=== PATIENT | female | born 1930 | race Caucasian/White ===

== ENCOUNTER → 2017-01-29 | Outpatient (CLI) | payer MEDICARE, BC ==
[~2017-01-29] MED LIST: ACET-2321 PO; AMLO2.5T33 PO; ASPI-917 PO; CALC-587 PO; CARB1TAB PO; CHOL200047 PO; DOCU-175 PO; FAMO1TAB17 PO; IRBE300T19 PO; MAG-37 PO; MAGN400O4 PO; MAGN800O PO; METO-277 PO; METO10TA3 PO; METO10TA65 PO; METO25TA27 PO; PANT40TA27 PO; POLY17PO18 PO; PRAM0.5T12 PO; PRAV20TA48 PO; SENN-156 PO; TEMA15CA PO; TRAM50TA4 PO; TRAM50TA53 PO; [UNRECOGNIZED DRUG - CODE] PO; [UNRECOGNIZED DRUG - CODE] PO; [UNRECOGNIZED DRUG - CODE] PO
--- NOTE | 2017-01-29 09:03 | DI ---
Indication: ITS.REASON: N18.4 CHRONIC KIDNEY DISEASE, STAGE 4 US RENAL: Comparison: None Technique: Real-time and color flow imaging provided Findings: Right kidney: Measures 10.3 x 4.1 x 3.6 cm Left kidney measures 10.3 x 4.4 x 3.6 cm. Patient showed minimal cortical thinning but no masses, cysts or abnormal calcifications. Kidneys did not seem particularly hyperechoic and echogenic texture. Both hypoechoic compared to the adjacent liver. Impression: Questionable minimal cortical thinning without additional acute findings. .
== END ==
LOC: IMA 06:52
PROVIDERS: ATTEND Internal Medicine Nephrology
DX: N18.4 Chronic kidney disease, stage 4 (severe) (principal)

== ENCOUNTER 2017-02-03 06:39 | Inpatient (IN) | payer MEDICARE, BC ==
--- NOTE | 2016-12-15 17:00 | NUR ---
PMH, allergies, meds reviewed and documented. Patient is accompanied by her son who is an active participant in providing information obtained. Preop and DOS instructions given including handouts of medications to stop before surgery, shower instructions and CHG soap, letter from Dr Parsons, ortho consent, Surgical Services pamphlet, and my contact information. We did discuss problems they had encountered with communications between facilities with her previous joint replacement in 2014. I encouraged them to visit with Abdi Montiel RN with Case Management and provided her phone number to them.
--- NOTE | 2016-12-16 08:37 | NUR ---
IMPLANTABLE DEVICE [employer]-Implanted Cardiac Rhythm Device Model [id number] SERIAL [id number] DATE OF [id number] PHONE FOR MEDICAL PERSONNEL: - [phone]
--- NOTE | 2017-01-06 16:06 | NUR ---
JOINT REPLACEMENT PREOP CLASS PATIENT ATTENDED JOINT REPLACEMENT PREOP CLASS. CASE MANAGEMENT CONTACT INFORMATION PROVIDED. EDUCATION WAS PROVIDED REGARDING WHAT TO EXPECT BEFORE, DURING AND AFTER SURGERY. INCLUDING: OVERVIEW OF ANATOMY AND PHYSIOLOGY HOSPITAL TREATMENT SCHEDULE THERAPY DEMONSTRATION CASE MANAGEMENT RESPONSIBILITIES DISCHARGE PLANNING EQUIPMENT NEEDS JOINT REPLACEMENT WORKBOOK ANTI-COAGULATION SURGERY STRONG NUTRITIONAL PROTOCOL DISCHARGE INSTRUCTIONS [facility] [place]IENT PORTAL, WITH INSTRUCTIONS CJR AND PREOP SURVERY PREOP BATHING- CHG GIVEN ALL PATIENT'S QUESTIONS ANSWERED TO THEIR SATISFACTION. PATIENTS AND COACHES ENCOURAGED TO CALL WITH ANY ADDITIONAL QUESTIONS OR CONCERNS. CM FOLLOWING FOR TRANSITIONAL CARE PLANNING NEEDS DURING HOSPITALIZATION.
--- NOTE | 2017-02-02 19:35 | NUR ---
TIME CHANGE FOR ARRIVAL NOTIFICATION TO NUMBER ON FILE. SON ANSWERED PHONE. RN VERBALIZED TIME CHANGE TO ARRIVE AT [facility] AT 0645 02/03/17. SON OF PT VERBALIZED UNDERSTANDING AT THIS TIME.
[~2017-02-03] VITALS: Ht 162.6 cm; Wt 99.3 kg
[2017-02-03] VITALS (33 sets, daily range): BP systolic 116–217; BP diastolic 54–87; PULSE 75–92; RESP 13–20; TEMP 95.4–99.5; O2SAT 87–97; Ht 162.6 cm; Wt 99.3 kg
[~2017-02-03 06:39] MED LIST changes: -ACET-2321 PO; -ASPI-917 PO; +FAMOTIDINE 20mg IVPB 50 ML IV ONE; +LIDOCAINE 1% (10mg/ml) 2ml SDV SQ ONE; -MAGN400O4 PO; +METOCLOPRAMIDE 10mg/2ml INJECTION IV ONE; -POLY17PO18 PO; -SENN-156 PO; -TRAM50TA53 PO; +TRANEXAMIC ACID 1,000 MG in NORMAL SALINE 100 ML IV ONE; -[UNRECOGNIZED DRUG - CODE] PO
--- OUTSIDE RECORDS SUMMARY | 2017-02-03 06:44 | XMS REPORT | Continuity of Care Document ---
Author Author Bushra Cota MA [facility] Address [address] [place] [id number] Phone Unavailable Care Team Providers Care Bookmobile Librarian Name Role Phone Wesley Stern PP Unavailable Payers Payer name Insurance type Covered alliance party ID Authorization(s) Unknown Problems Condition Effective Dates (start - stop) Clinical Status Dermatophytosis of nail - *Chronic Pain in limb - Inactive DERMATOPHYTOSIS OF NAIL - INGROWING NAIL - PAIN IN LIMB - Dermatophytosis of nail - *Chronic Pain in limb - *Chronic Dermatophytosis of nail - *Chronic Pain in limb - *Chronic Dermatophytosis of nail - *Chronic Pain in limb - *Chronic Dermatophytosis of nail - *Chronic Pain in limb - *Chronic Family History Family Member Diagnosis Age At Onset Status Unknown Social History Social History Element Description Quantity Unknown Allergies, Adverse Reactions, Alerts Substance Reaction Severity Status CODEINE stomach problems Unknown IBUPROFEN Unknown Medications Medication Instructions Dosage Effective Dates (start - stop) Status acetaminophen ER 650 mg tablet,extended release take 1 tablet (650MG) by oral route 3 times every day as needed 650 MG - Active Calcium 500 + D (D3) 500 mg-125 unit tablet take 1 by Oral route 2 times every day 0 - Active naproxen 250 mg tablet take 1 tablet (250MG) by oral route 2 times every day with food 250 MG - Active Colace 50 mg capsule take 2 Capsule by oral route every day as needed 100 MG - Active take 1 by Oral route 2 times every day 0 - No Longer Active pramipexole 0.5 mg tablet take 1 tablet (0.5MG) by oral route every bedtime 0.5 MG - Active pantoprazole 40 mg tablet,delayed release take 1 Tablet (40MG) by oral route every evening 40 MG - Active metoclopramide 10 mg tablet take 1 tablet (10MG) by oral route 3 times every day 1 at lunch,1 at supper, 1/2 at bedtime 10 MG - Active temazepam 15 mg capsule take 1 capsule (15MG) by oral route every day 15 MG - Active Milk of Magnesia 400 mg/5 mL Oral Susp take 30 milliliter by oral route every evening as needed, followed by a full glass (8 oz) of liquid 0 2011 - Active amlodipine 2.5 mg tablet take 1 tablet (2.5MG) by oral route every day 2.5 MG - Active Avapro 150 mg tablet take 1 tablet (150MG) by oral route every day 150 MG - Active tramadol 50 mg tablet take 1 Tablet (50MG) by oral route 4 times every day 50 MG - Active carbidopa 10 mg-levodopa 100 mg tablet take 0.5 Tablet by oral route every day 0 - Active pravastatin 20 mg tablet take 1 Tablet (20MG) by oral route every day 20 MG - Active metoprolol succinate ER 50 mg tablet,extended release 24 hr take 1 tablet ( 50MG) by oral route 2 times every day 50 MG - Active nitroglycerin 0.[address] 1 tablet (0.4MG) by sublingual route at the 1st sign of attack; may repeat every 5 min until relief; if pain persists after 3 tablets in 15 min, prompt medical attention is recommended 0.4 MG - Active Pepcid Complete 10 mg-800 mg-165 mg chewable tablet 1 tab. when needed Sep - Active multivitamin tablet take 1 by Oral route every day 0 - Active Vitamin D3 2,000 unit tablet take 1 by Oral route every day 0 - Active Immunizations Vaccine Date Status Comments Unknown Results Test Name Date and Time Measure Units Reference Range Abnormal Flag Comments Unknown Vital Signs Date / Time: Height Weight Pulse Rate Blood Pressure Temperature Unknown Procedures Procedure Date Unknown Encounters Encounter Location Date Patient Visit [facility] New Pod Patient Visit [facility] New Pod Patient Visit [facility] Patient Visit [facility] Patient Visit [facility] New Pod Patient Visit [facility] New Pod Patient Visit [facility] New Pod Advance Directives Directive Effective Date Unknown
--- OUTSIDE RECORDS SUMMARY | 2017-02-03 06:44 | XMS REPORT | Continuity of Care Document ---
Author Author [facility] Organization [facility] Address Unknown Phone Unavailable Allergies Medications Problems Procedures Results Encounters ACCT No. Visit Date/Time Discharge Status Pt. Type Provider Facility Loc./Unit Complaint [id number] 01/09/2014 15:42:00 01/09/2014 23 :59:59 [facility] Outpatient [id number] 10/10/2013 15:31:00 10/10/2013 23 :59:59 [facility] Outpatient
[2017-02-03] MEDS ORDERED: TRANEXAMIC ACID 1,000 MG in NORMAL SALINE 100 ML IV ONE (07:00)
[2017-02-03] MEDS ORDERED: NORMAL SALINE 1,000 ML IV SCH (07:00)
[2017-02-03] MEDS ORDERED: NOZIN NASAL SWAB NS ONE ×2 (07:00→11:00)
[2017-02-03] MEDS ORDERED: ONDANSETRON 4mg/2ml INJECTION IV ONE (07:00)
[2017-02-03] MEDS ORDERED: ACETAMINOPHEN 500 MG TABLET PO ONE (07:00)
[2017-02-03] MEDS ORDERED: DEXAMETHASONE 4mg/ml - 1ml INJECTION IV ONE (07:00)
--- NOTE | 2017-02-03 07:28 | PDHPBRIEF ---
History and Physical Update Date DATE: 02/03/17 TIME: 07:28 I evaluated this patient and found no changes in the history and clinical exam findings. The recommendations and treatment plan is also unchanged from the previous documentation. GUILLERMO DONATO Feb 03, 2017 07:28
[2017-02-03 07:34] LABS: HCT - HEMATOCRIT 35.7 % (36-46); HGB - HEMOGLOBIN 10.6 GM/DL (12-16); MEAN CORPUSCULAR HGB 27.7 UUG (26-34); MEAN CORPUSCULAR HGB CONC(MCHC 29.7 GM/DL (31-37); MEAN CORPUSCULAR VOLUME 93.5 UM3 (80-100); MEAN PLATELET VOLUME 9.3 UM3 (9.4-12.4); RED BLOOD COUNT 3.82 M/MM3 (4.00-5.20); WBC - WHITE BLOOD COUNT 15.2 T/MM3 (4.5-11.0)
[2017-02-03 07:41] LABS: ALBUMIN 4.1 G/DL (3.5-5.0); ALBUMIN/GLOBULIN RATIO 1.3 RATIO (1.1-2.2); ALKALINE PHOSPHATASE 106 U/L (38-126); ALT (SGPT) 24 U/L (9-52); ANION GAP 15 MEQ/L (5-15); AST (SGOT) 38 U/L (14-36); BUN/CREATININE RATIO 26 RATIO (6-26); CALCIUM 9.6 MG/DL (8.4-10.2); CHLORIDE 104 MEQ/L (98-107); CO2 - CARBON DIOXIDE 23 MEQ/L (22-30); CREATININE 1.3 MG/DL (0.7-1.2); GLOMERULAR FILTRATION RATE 39; GLUCOSE 120 MG/DL (65-110); POTASSIUM 4.7 MEQ/L (3.6-5); SODIUM 142 MEQ/L (134-144); TOTAL PROTEIN 7.2 G/DL (6.3-8.2)
--- NOTE | 2017-02-03 07:56 | ANESPREOP ---
Anesthesia Record Date and Time DATE: 02/03/17 TIME: 07:49 Pre-Op Diagnosis Lt Knee DJD Proposed Surgical Procedure LT TKA NPO since: MN except sip with meds this AM Allergies: Coded Allergies: codeine (Verified Allergy, Mild, NAUSEA & VOMITING, 02/02/17) amoxicillin (Verified Allergy, Unknown, NAUSEA & VOMITING, 02/03/17) PER H&P DATED 07-16-15 benazepril (Verified Allergy, Unknown, 02/03/17) PER ORTHO CLINIC NOTES hydrochlorothiazide (Verified Allergy, Unknown, 02/03/17) PER ORTHO CLINIC NOTES levofloxacin (Verified Allergy, Unknown, 02/02/17) SON STATES SHE PASSED OUT AFTER FINISHING THE COURSE OF THE MEDICATION triamterene (Verified Allergy, Unknown, 02/03/17) PER ORTHO CLINIC NOTES ibuprofen (Verified Adverse Reaction, Mild, CONSTIPATION, 02/03/17) Ht/Wt/BMI Height: 5 ' 4.00 " Weight: 99.300 kg BMI: 37.6 kg/m2 Vital Signs Date Time Temp Pulse Resp B/P Pulse Ox O2 Delivery O2 Flow Rate FiO2 02/03/17 06:58 98.5 92 13 217/87 95 Room Air Medications Inpatient Medications Current Medications Medications (Trade) Dose Ordered Sig/[place] Start Time Stop Time Status Last Admin Dose Admin Sodium Chloride 1,000 ml @ 50 mls/hr Q20H 02/03/17 07:00 Epinephrine HCl/ Bupivacaine HCl/ Morphine Sulfate/ Sodium Chloride (Adrenalin/ Marcaine 0.25%/ Morphine Sulfate/ NS) 63.25 ml @ 0 mls/hr Q0M 02/03/17 10:00 Acetaminophen (Arthritis Pain) 650 Mg Tablet.er, 1 TAB PO TIDWM, (Reported) Amlodipine (Norvasc) 2.5 Mg Tablet, 2.5 MG PO DAILY, (Reported) Calcium Carbonate/Vitamin D3 (Calcium + D Tablet) 1 Udtab Tablet, 1 UDTAB PO BID , (Reported) Carbidopa/Levodopa (Sinemet 10/100 Tab) 1 Udtab Tablet, 1 TAB PO SUPPER, ( Reported) Cholecalciferol (Vitamin D3) (Vitamin D3) 2,000 Unit Capsule, 1 CAP PO SUPPER, ( Reported) Docusate Sodium (Docusate Sodium) 100 Mg Capsule, 1 CAP PO Supper&HS, (Reported) 1 capsule at supper and 1 capsule at HS Famotidine/Ca Carb/Mag Hydrox (Pepcid Complete Tablet Chew) 1 Each Tab.chew, 1 TAB PO HS, (Reported) Folic Acid/Mv,Fe,Other Min (One Daily For Women Tablet) 1 Each Tablet, 1 TAB PO NOON, (Reported) Irbesartan (Irbesartan) 300 Mg Tablet, 1 TAB PO DAILY, (Reported) Mag Hydrox/Al Hydrox/Simeth (Maalox Advanced Suspension) 355 Ml Oral.susp, 4 TSP PO HS, (Reported) Magnesium Hydroxide (Milk of Magnesia) 2,400 Mg/10 Ml Oral.susp, 2 TBS PO HS, ( Reported) Metoclopramide HCl (Metoclopramide HCl) 10 Mg Tablet, 5 MG PO HS, (Reported) 1 TAB MORNING, 1 TAB NOON, 0.5 TAB HS Metoclopramide Hcl (Reglan) 10 Mg Tablet, 10 MG PO AM&NOON, (Reported) 1 TAB MORNING, 1 TAB NOON, 0.5 TAB HS Metoprolol Succinate (Metoprolol Succinate) 25 Mg Tab.sr.24h, 25 MG PO SUPPER, ( Reported) Metoprolol Succinate (Metoprolol Succinate) 50 Mg Tab.er.24h, 1 TAB PO AM, ( Reported) Pantoprazole Sodium (Pantoprazole Sodium) 40 Mg Tablet.dr, 1 TAB PO AM, ( Reported) Pramipexole Di-HCl (Pramipexole Dihydrochloride) 0.5 Mg Tablet, 1 TAB PO SUPPER, (Reported) Pravastatin Sodium (Pravastatin Sodium) 20 Mg Tablet, 20 MG PO HS, (Reported) Temazepam (Temazepam) 15 Mg Capsule, 1 CAP PO HS, (Reported) Tramadol HCl (Tramadol HCl) 50 Mg Tablet, 1 TAB PO Q4HPRN PRN for PAIN, ( Reported) Currently on Beta Jimmy: Yes Beta Jimmy Last Taken: 02/03 AM Medical/Surgical History Anesthesia PMH: Reports: *Dyspnea (ON EXERTION), *Hypertension (pt states SBP usually around 140s), Arthritis (KNEES, HANDS, left hip), Headaches ( OCCASIONALLY), Pacemaker (Hx of Afib), Reflux, Renal Disease (CKD PER H&P), Denies: *Angina, *Diabetes, *NM, Anesthesia Reactions, Asthma, CHF, COPD, CVA/ Stroke/TIA, Cancer, Deep Vein Thrombosis, Glaucoma, Hepatitis, Hiatal Hernia, Malignant Hyperthermia, Pneumonia, Rheumatic Fever, Seizures, Sleep Apnea, Thyroid Disease, Tuberculosis Smoking Status: Never smoker Has pt. smoked today?: No Substance Use Type: does not use Alcohol Intake: other (2x/yr) HX of Last Menstrual Period: POST MENOPAUSAL Past Surgical History Orthopedic Surgeries: Yes - RT TKA Abdominal Surgeries: Yes - APPY Genitourinary Surgeries: No Cardiac Surgeries: Yes - PACEMAKER Endocrine Surgeries: No Reproductive Surgeries: No Neurological Surgeries: No Ear Surgeries: No Nose Surgeries: No Throat Surgeries: Yes - EGD Other Surgeries: Yes - CATARACT SURGERY; COLONOSCOPY Anesthesia Adverse Reactions: FOUND none Family Hx of Anesthesia Advers: none Hx of Motion Sickness: No Pertinent Findings Laboratory Tests 02/03/17 07:04 Physical Exam Respiratory: Lungs clear Cardiovascular: FOUND Regular rate, rhythm, FOUND No murmur, FOUND Pacemaker Airway Assessment Mallampati Score: II TMD: 3 Fingerbreadths Neck Extension: Fair Overall Assessment: No Airway Concerns ASA: 3 Plan Anesthesia Plan: LMA, GETA Peripheral Nerve Block: Saphenous - LT Discussion Discussed risks/options/alternatives of anesthesia and questions answered. Patient consents. Nursing pain assessment noted. Present: Spouse Attestation Statement Prior to the delivery of any anesthetic medication, I examined the patient, developed the plan, obtained the patient's consent and discussed the risk and benefits of the procedure with the patient/guardian. CHAO MONTERO TRAMPOLINE TEAM COACH STUDENT Feb 03, 2017 07:52
[2017-02-03 08:03] LABS: BAND NEUTROPHILS # 0.2 T/MM3; EOSINOPHILS # (MANUAL) 0.3 T/MM3 (0-0.5); LYMPHOCYTES # (MANUAL) 2.6 T/MM3 (1-4.8); MONOCYTES # (MANUAL) 0.6 T/MM3 (0-0.8); NEUTROPHILS #(MANUAL)-ABSOLUTE 11.6 T/MM3 (1.8-7.7); TOTAL CELLS COUNTED 100 %
[2017-02-03] MEDS ORDERED: ROPIVACAINE 0.5% (5mg/ml) 30ml INJ ONE (08:05)
[2017-02-03] MEDS ORDERED: PROPOFOL 200mg 200 MG, ESMOLOL 50 MG, KETAMINE 50 MG, LIDOCAINE 2% 100 MG, DEXMEDETOMID... IV ONE ×6 (08:15)
[2017-02-03] MEDS ORDERED: MIDAZOLAM 2mg/2ml INJECTION IV ONE (08:15)
[2017-02-03] MEDS ORDERED: VANCOMYCIN 1 GRAM INJECTION ONE (08:25)
--- NOTE | 2017-02-03 08:47 | ANESPD ---
Peripheral Nerve Blockade Physician: Bj Parsons MD Date: 02/03/17 Surgical Procedure: Lt TKA Discussion Discussed risks/options/alternatives of anesthesia and questions answered. Patient consents. Nursing pain assessment noted. Block Start: 08:35 Block Stop: 08:42 Block Employed: Adductor Canal Indication: post-operative pain Approach: left side confirmed Position: supine Patient: Consent, risks/benefits discussed, Informed, post block act. discussed Monitors: EKG, SpO2, NIBP IV Sedation: Yes Sedation: sedate w/meaningful contact Midazolam (mg): 2 Initial Vital Signs First Documented Vital Signs Date Time Temp Pulse Resp B/P Pulse Ox O2 Delivery O2 Flow Rate FiO2 02/03/17 06:58 98.5 92 13 217/87 95 Room Air Post Vital Signs Vital Signs Date Time Temp Pulse Resp B/P Pulse Ox O2 Delivery O2 Flow Rate FiO2 02/03/17 08:30 16 02/03/17 06:58 98.5 92 217/87 95 Room Air Initial Pain Score: 4 Post Block Score: 1 Prep: chlorhexadine/ETOH Ultrasound Used?: Yes (see ultrasound image in EMR) Injectate Ropivacaine (%): 0.5 Ropivacaine (mL): 20 Was Epi 1:200,000 Used?: No Injection Injection made incrementally with constant monitoring and aspiration every [5] ml. CHAO MONTERO WATER RESOURCES TECHNICAL OFFICER STUDENT Feb 03, 2017 08:47
[2017-02-03] MEDS ORDERED: FENTANYL 250mcg/5ml INJECTION ONE (08:52)
[2017-02-03] MEDS ORDERED: SALINE FLUSH 10ml SYRINGE ONE (09:08)
[2017-02-03] MEDS ORDERED: EPHEDRINE SULFATE 50mg/ml INJECTION ONE (09:08)
[2017-02-03] MEDS ORDERED: TRANEXAMIC ACID 1,000 MG in NORMAL SALINE 100 ML TOP SCH (10:00)
[2017-02-03] MEDS ORDERED: CLINDAMYCIN 900mg IVPB 50 ML IV ONE (10:00)
[2017-02-03] MEDS ORDERED: EPINEPHRINE 0.25 MG, BUPIVACAINE 0.25% 75 MG, MORPHINE SULFATE 15 MG in NORMAL SALINE 3... INJ SCH (10:00)
--- NOTE | 2017-02-03 10:36 | PDOPERATE ---
Operative Report Date of Operation 02/03/17 Side: Left Preoperative Diagnosis: knee primary DJD Postoperative Diagnosis Same as preoperative diagnosis. Operation/Procedure: total knee arthroplasty (left) Surgeon Michele Parsons MD Engineer Station Mainline DAVID Mcneill Complications None. Anesthesia Plan: GETA Estimated Blood Loss See Anesthesia Record. Fluids Please See Anesthesia Record. Description of Operation Ms. Puente and her left knee were identified and marked in the the preoperative holding area. She was then brought back to the operating suite and proper anesthesia was administered. She was then positioned supine on the operating table. The left lower extremity was then prepped and draped in my normal sterile fashion. Timeout was performed with all operating room personnel. The leg was exsanguinated and tourniquet inflated 250 mmHg. A standard anterior incision followed by a medial parapatellar approach was utilized. The vast majority of her arthritis was underneath the patella. Lateral facet was severely affected. A distal femoral cut was made in 5 of valgus using intramedullary guide. The femur was sized at a 4 and rotation set using the epicondylar axis. The tourniquet was then let down. Distal femoral cuts were performed. A proximal tibial cut was made using extramedullary guide. Remaining osteophytes and meniscus were removed. Gaps were checked and they were well balanced and rectangular. Trial components were placed with a 9 mm spacer. This allowed for full range of motion and the patella tracked well. The knee was stable throughout range of motion. The patella was resurfaced with the knee in extension to a size 32. The tibia rotation was then marked and the tibia stamped at the proper rotation at a size 4. The bone was prepared for cementing and all components cemented into place and allowed to cure in extension. Betadine solution was used for 3 minutes during the curing period and then fully irrigated out with 1 L of normal saline. Hemostasis obtained with electrocautery. 1 g of TXA was placed into the knee and allowed to sit for 5 minutes. After the cement had cured the knee was taken through range of motion check for balance and stability which were good. Vancomycin powder was placed into the wound. The arthrotomy was closed with #1 Vicryl. The remainder of the wound was then closed by my assistant cross country coach utilizing 2-0 vycral in the subcutaneous tissue. 4-0 monocryl was used in the subcuticular layer followed by dermabond and a sterile dressing. After closure the patient will be transferred to the recovery room under the care of anesthesia. MORGAN PARSONS MD Feb 03, 2017 10:36
[2017-02-03] MEDS ORDERED: DiphenhydrAMINE 50 MG/ML INJECTION IV PRN (11:00)
[2017-02-03] MEDS ORDERED: ONDANSETRON 4mg/2ml INJECTION IV PRN (11:00)
[2017-02-03] MEDS ORDERED: METOCLOPRAMIDE 10mg/2ml INJECTION IV PRN (11:00)
[2017-02-03] MEDS ORDERED: DiphenhydrAMINE 25 MG CAPSULE PO PRN (11:00)
[2017-02-03] MEDS ORDERED: SENNOSIDES 8.6 MG TABLET PO PRN (11:00)
[2017-02-03] MEDS ORDERED: PRN ORDERS MC (11:00)
[2017-02-03] MEDS ORDERED: LORAZEPAM 1 MG TABLET PO PRN (11:00)
--- NOTE | 2017-02-03 11:06 | NUR ---
JAY CM IN TO VISIT WITH PT. SHE IS AT PROCEDURE. HER SON IS PRESENT. PER PRE-OP MEETING WITH PT AND SON HE CONFIRMS THAT THEY WOULD LIKE REFERRALS TO IR AND [facility]. SON IS GIVEN CM CONTACT INFORMATION. Addendum: 02/03/17 at 1107 by IGOR GARCIA RN Amended: Links added.
--- NOTE | 2017-02-03 11:28 | NUR ---
ORDERS ORDERS RECEIVED FROM TRE PÉREZ FOR THE PACU DILAUDID ORDER. CONFIRMED ALLERGY OF CODEINE WITH ELISA ORDERS OK TO GIVE.
[2017-02-03] MEDS ORDERED: HYDROMORPHONE 2mg/ml INJECTION IV PRN (11:30)
--- NOTE | 2017-02-03 11:32 | DI ---
Indication: ITS.REASON: POSTOP left knee replacement PROCEDURE: KNEE LEFT 2 VIEW: Encounter: Initial Comparison: None Findings: Postoperative changes of left total knee replacement are seen. There is expected postoperative subcutaneous gas. No evidence of hardware failure or acute fracture. No retained radiopaque surgical instruments or sponges. Overlying material causing artifact. Impression: New left total knee prosthesis without evidence of immediate complication. .
[2017-02-03] MEDS: NORMAL SALINE 1,000 ML IV SCH (11:40)
--- NOTE | 2017-02-03 11:50 | NUR ---
Recieved from PACU, in good spirits, family in with patient, o2 on at 1l n/c.
--- NOTE | 2017-02-03 12:06 | ANESPO ---
Post-Op Note Date 02/03/17 Time: 11:55 Status Pt Participated in Evaluation: Pt participated in person Vital Signs Date Time Temp Pulse Resp B/P Pulse Ox O2 Delivery O2 Flow Rate FiO2 02/03/17 11:49 99.1 02/03/17 11:45 85 16 135/63 94 Nasal Cannula 2.00 Respiratory Function: Airway patent, Regular respirations Cardiovascular Function: Regular pulse Mental Status: Alert/oriented Pain Level Intensity: 3 Unable to Assess Pain Due To: PRE-OP ORDER Hydration: IV infusing Complications during Recovery None apparent Follow-Up Instructions Instructions Per Surgeon PEYTON TSAI CRNA Feb 03, 2017 12:06
--- NOTE | 2017-02-03 14:30 | NUR ---
Walks well with PT.
--- NOTE | 2017-02-03 14:45 | NUR ---
Status OT dresses after brings clothing. UP in chair.
[2017-02-03] MEDS: TRAMADOL 50 MG TABLET PO PRN (15:25)
[2017-02-03] MEDS: ACETAMINOPHEN 325 MG TABLET PO SCH ×3 (15:35→21:19)
[2017-02-03] MEDS: CLINDAMYCIN 900mg IVPB 50 ML IV SCH ×2 (15:42→21:27)
[2017-02-03] MEDS: NOZIN NASAL SWAB NS SCH ×2 (17:00→21:21)
[2017-02-03] MEDS ORDERED: CARBIDOPA/LEVODOPA 10 MG/100 MG TABLET PO SCH (17:30)
[2017-02-03] MEDS ORDERED: PRAMIPEXOLE 0.5 MG TABLET PO SCH (17:30)
[2017-02-03] MEDS ORDERED: METOPROLOL XL 25 MG TABLET PO SCH (17:30)
--- NOTE | 2017-02-03 18:30 | NUR ---
Eats well, takes pills well. In good spirits. Denies need for pain med at this time.
[2017-02-03] MEDS: ASPIRIN *EC* 325mg TABLET PO SCH (21:19)
[2017-02-03] MEDS ORDERED: SENNOSIDES 8.6 MG TABLET PO SCH (22:00)
[2017-02-03] MEDS ORDERED: PRAVASTATIN 20 MG TABLET PO SCH (22:00)
[2017-02-03] MEDS ORDERED: FAMOTIDINE 20 MG TABLET PO SCH (22:00)
[2017-02-03] MEDS ORDERED: TEMAZEPAM 15 MG CAPSULE PO SCH (22:00)
[2017-02-03] MEDS ORDERED: MILK OF MAGNESIA 30 ML SUSP PO SCH (22:00)
--- NOTE | 2017-02-04 02:53 | NUR ---
Chart Check 24 hour chart check completed
[2017-02-04] MEDS: CLINDAMYCIN 900mg IVPB 50 ML IV SCH (03:05)
[2017-02-04] MEDS: NORMAL SALINE 1,000 ML IV SCH (03:05)
[2017-02-04] MEDS: TRAMADOL 50 MG TABLET PO PRN ×2 (03:39→15:13)
[2017-02-04 03:44] VITALS: BP 148/67; PULSE 96; RESP 16; TEMP 95.7; O2SAT 97
[2017-02-04 05:20] LABS: HCT - HEMATOCRIT 28.1 % (36-46); HGB - HEMOGLOBIN 8.5 GM/DL (12-16); MEAN CORPUSCULAR HGB 28.2 UUG (26-34); MEAN CORPUSCULAR HGB CONC(MCHC 30.2 GM/DL (31-37); MEAN CORPUSCULAR VOLUME 93.4 UM3 (80-100); MEAN PLATELET VOLUME 9.2 UM3 (9.4-12.4); RED BLOOD COUNT 3.01 M/MM3 (4.00-5.20); WBC - WHITE BLOOD COUNT 15.6 T/MM3 (4.5-11.0)
[2017-02-04 05:38] LABS: ANION GAP 9 MEQ/L (5-15); BUN/CREATININE RATIO 26 RATIO (6-26); CALCIUM 7.9 MG/DL (8.4-10.2); CHLORIDE 104 MEQ/L (98-107); CO2 - CARBON DIOXIDE 21 MEQ/L (22-30); CREATININE 1.1 MG/DL (0.7-1.2); GLOMERULAR FILTRATION RATE 47; GLUCOSE 149 MG/DL (65-110); POTASSIUM 4.9 MEQ/L (3.6-5); SODIUM 134 MEQ/L (134-144)
[2017-02-04] MEDS: NOZIN NASAL SWAB NS SCH ×2 (05:53→13:20)
[2017-02-04] MEDS ORDERED: PANTOPRAZOLE 40 MG TABLET PO SCH (06:30)
--- NOTE | 2017-02-04 06:56 | NUR ---
STATUS PATIENT A/OX3. PATIENT SLEPT OFF AND ON BETWEEN CARES. PATIENT C/O PAIN AT LT KNEE. PRN TRAMADOL WAS GIVEN. PATIENT DENIES CHEST PAIN, SOA,OR N/V. ON 1L O2 VIA NC DURING NIGHT.PATIENT AMBULATED TO BATHROOM WITH ONE STANDBY ASSIST WITH WALKER. POLAR PAD USED AT LT KNEE.CALL LIGHT WITHIN REACH .CONTINUE TO MONITOR.
[2017-02-04 07:37] VITALS: BP 144/53; PULSE 79; RESP 20; TEMP 96.4; O2SAT 98
--- NOTE | 2017-02-04 08:17 | NUR ---
JAY CM IN TO VISIT WITH PT. SHE IS ALERT AND ORIENTED. HER 2 SONS ARE PRESENT. PT AND SONS REPORT THAT THEY WOULD LIKE PT TO GO TO [facility] OR [facility] SNF UPON DC. THEY ARE MADE AWARE THAT REFERRALS WERE MADE. CM WILL REPORT BACK TO THEM SHE HEARS BACK FROM FACILITIES. SHE EXPLAINS THAT SHE WILL SET UP TRANSPORTATION IF PT GOES TO [facility]. THEY ARE MADE AWARE THAT DC IS POSSIBLE TODAY. Addendum: 02/04/17 at 0818 by IGOR GARCIA RN Amended: Links added.
--- NOTE | 2017-02-04 08:34 | NUR ---
CM PER PHONE CONVERSATION WITH MARY, PT IS ACCEPTED TO [facility] FOR SNF. MARY IS MADE AWARE THAT DC IS POSSIBLE TODAY.
--- NOTE | 2017-02-04 08:42 | PDORTHOPN ---
Subjective Date DATE: 02/04/17 TIME: 08:36 Subjective Mariam is doing very well. Pain is minimal. Denies CP, cough, SOA, lightheadedness or dizziness. She has been up with good tolerance. Plans on SW kamara or IRU. Objective Vital Signs Vital signs Vital Signs 02/03/17 02/03/17 02/03/17 02/03/17 21:37 22:15 23:00 23:52 Temp 95.4 95.5 Pulse 83 97 75 84 Resp 18 18 16 B/P 118/62 124/65 Pulse Ox 95 95 90 93 O2 Delivery Room Air Room Air Room Air 02/04/17 02/04/17 03:44 07:37 Temp 95.7 96.4 Pulse 96 79 Resp 16 20 B/P 148/67 144/53 Pulse Ox 97 98 O2 Delivery Nasal Cannula Nasal Cannula O2 Flow Rate 1.00 1.00 Height (Feet): 5 Height (Inches): 4.00 Weight (Kilograms): 99.300 General General Appearance: No Acute Distress Respiratory (Brief) Respiratory Brief: FOUND: non-labored Cardiovascular (Brief) Cardiac: FOUND: calf easily compressible, calf soft, nontender, pedal pulses intact Surgical Site Incision: FOUND: Mepilex dressing intact, no drainage Neurologic (Brief) Neurological Brief: FOUND: extremities w/o deficits, neuro intact Psychiatric (Brief) Psychiatric Brief: FOUND: alert, no acute distress Laboratory Laboratory Laboratory Tests 02/03/17 07:04 02/04/17 04:47 Laboratory Tests 02/03/17 07:04 02/04/17 04:47 Assessment & Plan Problems: (1) Degenerative arthritis of left knee Status: Chronic Qualifiers: Osteoarthritis type: primary Qualified Codes: M17.12 - Unilateral primary osteoarthritis, left knee Assessment & Plan: Aspirin protocol for VTE prophylaxis. SCD's. PT/OT services to improve independent function. Discharge Planning per Case Management. No NSAIDs due to CKD. Monitor labs. Pt not symptomatic. (2) Chronic kidney disease (CKD) Status: Chronic Qualifiers: Chronic kidney disease stage: stage 3 (moderate) Qualified Codes: N18.3 - Chronic kidney disease, stage 3 (moderate) Assessment & Plan: no nsaids. Hospital Course Summary Disclaimer The visit summary below is not to be considered part of the above Progress Note. GUILLERMO DONATO Feb 04, 2017 08:40
[2017-02-04] MEDS ORDERED: DOCUSATE SODIUM 100 MG CAPSULE PO SCH (09:00)
[2017-02-04] MEDS ORDERED: METOPROLOL XL 50 MG TABLET PO SCH (09:00)
[2017-02-04] MEDS ORDERED: AMLODIPINE 2.5 MG TABLET PO SCH (09:00)
[2017-02-04] MEDS ORDERED: IRBESARTAN 300 MG TABLET PO SCH (09:00)
[2017-02-04] MEDS ORDERED: POLYETHYL.GLYCOL 3350 PACKET 17gm PO SCH (09:00)
--- NOTE | 2017-02-04 09:02 | NUR ---
CM PER CONVERSATION WITH CHAO FROM IRU, PT HAS BEEN ACCEPTED TO IRU. CHAO IS MADE AWARE THAT DC IS PLANNED FOR TODAY. PT, FAMILY, AND GUILLERMO ARE MADE AWARE OF ACCEPTANCE. MARY AT [facility] IS MADE AWARE THAT PT WILL DC TO IRU.
[2017-02-04] MEDS: ASPIRIN *EC* 325mg TABLET PO SCH (09:17)
[2017-02-04] MEDS: ACETAMINOPHEN 325 MG TABLET PO SCH ×2 (09:19→13:20)
[2017-02-04 09:46] VITALS: RESP 20
[2017-02-04 10:31] VITALS: PULSE 79; RESP 20
--- NOTE | 2017-02-04 11:03 | NUR ---
PROGRESS NOTE PT WALKED DOWN TO IRU FOR JOINT THERAPY. PT AMBULATED WITH GAITBELT, WALKER AND X1 ASSIST AND THEN WAS WHEELED DOWN THE REST OF THE WAY FROM MEDICAL NURSING STATION. PT OXYGEN SATURATION 98% AT THIS TIME ON RA. NO CONCERNS NOTED.
[2017-02-04 12:24] VITALS: BP 130/55; PULSE 85; RESP 16; TEMP 96.9; O2SAT 93
--- NOTE | 2017-02-04 12:56 | NUR ---
Spoke with patient 02/03 about IRU vs SNF and reviewed expectations. Reviewed with Dr. Gooden at 1830 02/03 and patient was accepted to IRU. CM notified 0900 on 02/04. Post PT treatment on acute, therapist advises that patient was able to ambulate >300 feet standby assist to modified independent. She was also able to perform curb, ramp, without assistance. At this time she has exceeded the admission status recommendations for IRU. Spoke with patient and son regarding significant progress. OT continues to recommend treatment and spoke with patient about home vs SNF. Patient has concerns about discharge home as son is unavailable to assist during the day. She requests referral to SNF. Case management notified.
--- NOTE | 2017-02-04 13:04 | NUR ---
JAY CM IN TO VISIT WITH PT. SHE IS AWARE THAT SHE NO LONGER QUALIFIES FOR IRU. SHE IS AGREEABLE TO SNF AT [facility]. HER SON IS ALSO IN AGREEMENT TO THIS PLAN. MARY AT [facility] IS AWARE AND CAN ACCEPT PT TO SNF TODAY.
[2017-02-04] MEDS ORDERED: TRAM50TA53 PO (13:19)
[2017-02-04] MEDS ORDERED: SENN-156 PO (13:19)
[2017-02-04] MEDS ORDERED: MAGN400O4 PO (13:19)
[2017-02-04] MEDS ORDERED: ASPI-917 PO (13:19)
[2017-02-04] MEDS ORDERED: POLY17PO18 PO (13:19)
[2017-02-04] MEDS ORDERED: ACET-2321 PO (13:19)
--- NOTE | 2017-02-04 13:28 | PDOCECFAO ---
Admission Orders Admission Orders Admit to: Shelter Allergies: Coded Allergies: codeine (Verified Allergy, Mild, NAUSEA & VOMITING, 02/02/17) amoxicillin (Verified Allergy, Unknown, NAUSEA & VOMITING, 02/03/17) PER H&P DATED 07-16-15 benazepril (Verified Allergy, Unknown, 02/03/17) PER ORTHO CLINIC NOTES hydrochlorothiazide (Verified Allergy, Unknown, 02/03/17) PER ORTHO CLINIC NOTES levofloxacin (Verified Allergy, Unknown, 02/02/17) SON STATES SHE PASSED OUT AFTER FINISHING THE COURSE OF THE MEDICATION triamterene (Verified Allergy, Unknown, 02/03/17) PER ORTHO CLINIC NOTES ibuprofen (Verified Adverse Reaction, Mild, CONSTIPATION, 02/03/17) Admitting Diagnosis Lt Total Knee Arthroplasty 02/03 Admitting Physician Bj Parsons MD Code Status Full Code Anticipated LOS: 30 days or less Rehab Potential: Good Rehab Prognosis: Good Diet: Regular Wound/Incision Care: Keep the mepilex dressing on. Call dr Parsons for any wound healing issues. Do not allow water to get behind the dressing. May use Facility Protocol /SO: Yes May Have Flu Vaccine: Yes Evaluations/Treat: PT, OT Shelter Certification I certify that SNF services are required to be given on an Inpatient basis because of the patients need for correction care on a continuing basis for the condition(s) for which he/she received inpatient hospital services prior to his/her transfer to the SNF. SNF inpatient care is necessary for the following reasons Postop Assessment Care Cardiac or Respiratory Arrest In Event of Arrest: Start CPR,call 911,to ER Resident is Aware of Diagnosis: Yes Additional Orders: Pt has a f/u appt with Dr Parsons in 3 weeks. Elevate the leg to prevent swelling. Do not sit with the leg down for > 1-2 hrs at one time. Use the ice darryl 15-20 min out of every hr as desired. PT / OT to work on ROM, exercises, strengthening, and ambulation. GUILLERMO DONATO Feb 04, 2017 13:28
--- NOTE | 2017-02-04 13:32 | PDOCECFAO ---
Admission Orders Admission Orders Admit to: Alf Allergies: Coded Allergies: codeine (Verified Allergy, Mild, NAUSEA & VOMITING, 02/02/17) amoxicillin (Verified Allergy, Unknown, NAUSEA & VOMITING, 02/03/17) PER H&P DATED 07-16-15 benazepril (Verified Allergy, Unknown, 02/03/17) PER ORTHO CLINIC NOTES hydrochlorothiazide (Verified Allergy, Unknown, 02/03/17) PER ORTHO CLINIC NOTES levofloxacin (Verified Allergy, Unknown, 02/02/17) SON STATES SHE PASSED OUT AFTER FINISHING THE COURSE OF THE MEDICATION triamterene (Verified Allergy, Unknown, 02/03/17) PER ORTHO CLINIC NOTES ibuprofen (Verified Adverse Reaction, Mild, CONSTIPATION, 02/03/17) Admitting Diagnosis Lt Total Knee Arthroplasty Admitting Physician Bj Parsons MD Code Status Full Code Anticipated LOS: 30 days or less Rehab Potential: Good Rehab Prognosis: Good Diet: Regular Wound/Incision Care: In most cases, a Mepilex dressing will be placed at the time of surgery. This dressing will not need to be covered while showering. Leave dressing in place until your follow-up appointment as long as it remains clean, dry and stuck down well around the edges. Call your Doctor if you encounter a problem with your dressing. Please avoid submerging your incision until it is completely healed, once the Mepilex dressing is removed. This includes bathtubs, swimming pools, and hot tubs. DO NOT USE ALCOHOL, PEROXIDE, OR OINTMENTS of any kind on your incision. May use Facility Protocol /SO: Yes May Have Flu Vaccine: Yes Evaluations/Treat: PT, OT Alf Certification I certify that SNF services are required to be given on an Inpatient basis because of the patients need for senior care care on a continuing basis for the condition(s) for which he/she received inpatient hospital services prior to his/her transfer to the SNF. SNF inpatient care is necessary for the following reasons Postop Assessment Care Cardiac or Respiratory Arrest In Event of Arrest: Start CPR,call 911,to ER Resident is Aware of Diagnosis: Yes Additional Orders: Pt has a f/u appt with Dr Parsons in 3 weeks. Elevate the leg to prevent swelling. Do not sit with the leg down for > 1-2 hrs at one time. Use the ice darryl 15-20 min out of every hr as desired. PT / OT to work on ROM, exercises, strengthening, and ambulation. Please check a CBC on 02/06 and fax copy to Dr Parsons at [phone]. [address] Parsons if Hgb is < 7.5 GUILLERMO DONATO Feb 04, 2017 13:32
--- NOTE | 2017-02-04 14:44 | DSPDOC ---
General Date Date DATE: 02/04/17 TIME: 14:39 Attending Physician Bj Parsons MD Admitting Physician Bj Parsons MD Consulting Physician Hitesh Guzman Admitting Diagnosis PRIMARY DEGENERATIVE JOINT DISEASE LEFT KNEE Discharge Diagnosis Primary DJD left knee Procedures Left total knee arthroplasty History of Present Illness HPI Elements This patient was admitted for elective surgical tx of end stage degenerative joint disease that failed to respond to conservative treatment. Further details of this is found in the admission H&P. Hospital Course After appropriate preoperative clearance and signing of operative consent, the patient was given IV antibiotics, according to orthopedic protocol. The patient was taken to the operating room and underwent elective left total knee arthroplasty. Following surgery, antibiotics were discontinued less than 24 hours according to joint protocol. Her hgb dropped to 8.5 but she was not symptomatic. We will check a CBC on 02/06 for f/u. Aspirin was initiated and SCDs added for DVT prevention. The dressing was clean, dry, and intact. Pain control was obtained via multimodal approach. Bowel motivation addressed with scheduled and PRN medications. Early mobilization was initiated through PT services. Discharge arrangements made by a collaborative effort between the patient and Case Management. Pt was denied to IRU but will go to SNU at [facility]. Follow-up is scheduled in 2-3 weeks. Discharge instructions given by orthopedic providers and nursing staff at discharge. Discharge condition was good. Problems: (1) Degenerative arthritis of left knee Status: Chronic Assessment & Plan: Aspirin protocol for VTE prophylaxis. SCD's. PT/OT services to improve independent function. Discharge Planning per Case Management. No NSAIDs due to CKD. Monitor labs. Pt not symptomatic. (2) Chronic kidney disease (CKD) Status: Chronic Assessment & Plan: no nsaids. Associated Postoperative Event: Acute P.O. Anemia Ongoing Care Required?: No Acute P.O. Anemia: No intervention required, HGB drop-acceptable range Laboratory Laboratory Tests Test 02/04/17 04:47 White Blood Count 15.6T/MM3 Red Blood Count 3.01M/MM3 Hemoglobin 8.5GM/DL Hematocrit 28.1% Mean Corpuscular Volume 93.4UM3 Mean Corpuscular Hemoglobin 28.2UUG Mean Corpuscular Hemoglobin Concent 30.2GM/DL RDW Standard Deviation 47.7FL Platelet Count 296T/MM3 Mean Platelet Volume 9.2UM3 Turbidity < 20 Sodium Level 134MEQ/L Potassium Level 4.9MEQ/L Chloride Level 104MEQ/L Carbon Dioxide Level 21MEQ/L Anion Gap 9MEQ/L Blood Urea Nitrogen 29.0MG/DL Creatinine 1.1MG/DL Glomerular Filtration Rate Calc 47 BUN/Creatinine Ratio 26RATIO Glucose Level 149MG/DL Calculated Osmolality 267MOSM/KG Calcium Level 7.9MG/DL Icterus Index < 2 Chemistry Specimen Hemolysis < 15 Home Meds Active Scripts Polyethylene Glycol 3350 (Healthylax) 17 Gm Powd.pack, 17 G PO DAILY for 30 Days Prov:GUILLERMO DONATO 02/04/17 Sennosides (Senna) 8.6 Mg Tablet, 17.2 MG PO DAILY Y for CONSTIPATION for 30 Days, #60 TAB Prov:GUILLERMO DONATO 02/04/17 Magnesium Hydroxide (Milk of Magnesia) 400 Mg/5 Ml Oral.susp, 30 ML PO 0800 Y for CONSTIPATION for 30 Days Prov:GUILLERMO DONATO 02/04/17 Tramadol HCl (Ultram) 50 Mg Tablet, 50-100 MG PO Q4H Y for PAIN, #60 TAB Prov:GUILLERMO DONATO 02/04/17 Aspirin *EC* (Aspirin EC) 325 Mg Tablet.dr, 325 MG PO BID, #84 TAB Take Aspirin 325mg BID x 6 weeks for blood clot prevention. Prov:GUILLERMO DONATO 02/04/17 Acetaminophen (Tylenol) 325 Mg Tablet, 650 MG PO QID, #60 TAB Prov:GUILLERMO DONATO 02/04/17 Reported Medications Irbesartan (Irbesartan) 300 Mg Tablet, 1 TAB PO DAILY, TAB 02/01/17 Magnesium Hydroxide (Milk of Magnesia) 2,400 Mg/10 Ml Oral.susp, 2 TBS PO HS 12/16/16 Mag Hydrox/Al Hydrox/Simeth (Maalox Advanced Suspension) 355 Ml Oral.susp, 4 TSP PO HS 12/16/16 Folic Acid/Mv,Fe,Other Min (One Daily For Women Tablet) 1 Each Tablet, 1 TAB PO NOON 08/07/15 Docusate Sodium (Docusate Sodium) 100 Mg Capsule, 1 CAP PO Supper&HS, CAP 1 capsule at supper and 1 capsule at HS 9/14/15 Famotidine/Ca Carb/Mag Hydrox (Pepcid Complete Tablet Chew) 1 Each Tab.chew, 1 TAB PO HS 07/30/15 Cholecalciferol (Vitamin D3) (Vitamin D3) 2,000 Unit Capsule, 1 CAP PO SUPPER 07/30/15 Temazepam (Temazepam) 15 Mg Capsule, 1 CAP PO HS 07/30/15 Pramipexole Di-HCl (Pramipexole Dihydrochloride) 0.5 Mg Tablet, 1 TAB PO SUPPER 07/30/15 Pantoprazole Sodium (Pantoprazole Sodium) 40 Mg Tablet.dr, 1 TAB PO AM 07/30/15 Metoprolol Succinate (Metoprolol Succinate) 50 Mg Tab.er.24h, 1 TAB PO AM 07/30/15 Metoclopramide HCl (Metoclopramide HCl) 10 Mg Tablet, 5 MG PO HS 1 TAB MORNING, 1 TAB NOON, 0.5 TAB HS 07/30/15 Amlodipine (Norvasc) 2.5 Mg Tablet, 2.5 MG PO DAILY 03/18/10 Pravastatin Sodium (Pravastatin Sodium) 20 Mg Tablet, 20 MG PO HS 03/18/10 Calcium Carbonate/Vitamin D3 (Calcium + D Tablet) 1 Udtab Tablet, 1 UDTAB PO BID 03/18/10 Metoprolol Succinate (Metoprolol Succinate) 25 Mg Tab.sr.24h, 25 MG PO SUPPER 03/18/10 Carbidopa/Levodopa (Sinemet 10/100 Tab) 1 Udtab Tablet, 1 TAB PO SUPPER 03/18/10 Metoclopramide Hcl (Reglan) 10 Mg Tablet, 10 MG PO AM&NOON 1 TAB MORNING, 1 TAB NOON, 0.5 TAB HS 03/18/10 Discontinued Reported Medications Acetaminophen (Arthritis Pain) 650 Mg Tablet.er, 1 TAB PO TIDWM 12/16/16 Tramadol HCl (Tramadol HCl) 50 Mg Tablet, 1 TAB PO Q4HPRN Y for PAIN 07/30/15 Discharge Disposition Please refer to Case Management Notes for patient's disposition. Estimated Blood Loss GUILLERMO DONATO Feb 04, 2017 14:42
--- NOTE | 2017-02-04 15:15 | NUR ---
DISCHARGE NOTE PT WAS DISCHARGED FROM THE HOSPITAL AT THIS TIME, VIA WHEELCHAIR, ACCOMPANIED BY [facility] TRANSPORTATION. PT ALERT AND ORIENTED X3, VITAL SIGNS STABLE ON RA. PT'S IV SITE WAS DISCONTINUED. ALL BELONGINGS PACKED. THIS RN CALL REPORT TO EMILEE VICK AT [facility] INCLUDING DISCHARGE DIET, ACTIVITY, MEDICATIONS, CODE STATUS, ALLERGIES, AND LEVEL OF ORIENTATION. PT PACKET SENT WITH TRANSPORTATION. NO CONCERNS NOTED AT TIME OF DISCHARGE.
[2017-02-05] MEDS ORDERED: MILK OF MAGNESIA 30 ML SUSP PO SCH (08:00)
--- NOTE | 2017-02-05 13:55 | NUR ---
JAY THIS CM PLACED A FOLLOW UP DISCHARGE CALL TO [facility]. JAY SPOKE WITH NURSE GUNNER SHE REPORTS THAT PATIENT IS DOING GREAT AND HER PAIN IS UNDER CONTROL THERE WERE NO ISSUES OR CONCERNS WITH DISCHARGE.
[2017-02-05] MEDS ORDERED: BISACODYL 10 MG SUPPOSITORY RECTALLY SCH (20:00)
== END 2017-02-04 15:15 | DRG 470 ==
LOC: SRG 06:39
PROVIDERS: ADMIT Orthopaedic Surgery; ATTEND Orthopaedic Surgery
PROC: 0SRD0J9 Replacement of Left Knee Joint with Synthetic Substitute, Cemented, Open Approach (ICD-10-PCS; principal; 2017-02-03 09:26)
DX: M17.12 Unilateral primary osteoarthritis, left knee (principal); D64.9 Anemia, unspecified; I12.9 Hypertensive chronic kidney disease with stage 1 through stage 4 chronic kidney disease, or unspecified chronic kidney disease; N18.3 Chronic kidney disease, stage 3 (moderate); E78.00 Pure hypercholesterolemia, unspecified; Z95.0 Presence of cardiac pacemaker
CPT/HCPCS: 36415; 80048; 80053; 85025; 85027; 94664; 94762

== ENCOUNTER → 2017-02-13 | Outpatient (CLI) | payer MEDICARE, BC ==
[~2017-02-13] MED LIST changes: +ACET-2321 PO; +ASPI-917 PO; -FAMOTIDINE 20mg IVPB 50 ML IV ONE; +IOHEXOL 350 MG/ML 75ml INJECTION ONE; -LIDOCAINE 1% (10mg/ml) 2ml SDV SQ ONE; +MAGN400O4 PO; -METOCLOPRAMIDE 10mg/2ml INJECTION IV ONE; +NORMAL SALINE 100 ML ONE; +POLY17PO18 PO; +SALINE FLUSH 10ml SYRINGE ONE; +SENN-156 PO; -TRAM50TA4 PO; +TRAM50TA53 PO; -TRANEXAMIC ACID 1,000 MG in NORMAL SALINE 100 ML IV ONE; -[UNRECOGNIZED DRUG - CODE] PO
[2017-02-13 16:21] LABS: BASOPHILS # (AUTO) 0.1 T/MM3 (0-0.2); BASOPHILS % (AUTO) 0.4 % (0-2); EOSINOPHILS # (AUTO) 0.4 T/MM3 (0-0.5); EOSINOPHILS % (AUTO) 2.7 % (0-4); HCT - HEMATOCRIT 31.8 % (36-46); HGB - HEMOGLOBIN 9.8 GM/DL (12-16); IMMATURE GRANULOCYTE # (AUTO) 0.24 T/MM3 (0.00-0.03); IMMATURE GRANULOCYTE % (AUTO) 1.7 % (0.0-0.5); LYMPHOCYTES # (AUTO) 1.7 T/MM3 (1-4.8); LYMPHOCYTES % (AUTO) 11.9 % (23-45); MEAN CORPUSCULAR HGB 28.6 UUG (26-34); MEAN CORPUSCULAR HGB CONC(MCHC 30.8 GM/DL (31-37); MEAN CORPUSCULAR VOLUME 92.7 UM3 (80-100); MEAN PLATELET VOLUME 8.2 UM3 (9.4-12.4); MONOCYTES # (AUTO) 1.1 T/MM3 (0-0.8); MONOCYTES % (AUTO) 7.6 % (0-9.0); NEUTROPHILS #(AUTO)-ABSOLUTE 10.4 T/MM3 (1.8-7.7); NEUTROPHILS % (AUTO) 75.7 % (33-66); RED BLOOD COUNT 3.43 M/MM3 (4.00-5.20); WBC - WHITE BLOOD COUNT 13.8 T/MM3 (4.5-11.0)
[2017-02-13 16:31] LABS: ALBUMIN 3.9 G/DL (3.5-5.0); ALBUMIN/GLOBULIN RATIO 1.3 RATIO (1.1-2.2); ALKALINE PHOSPHATASE 109 U/L (38-126); ALT (SGPT) 34 U/L (9-52); ANION GAP 11 MEQ/L (5-15); AST (SGOT) 24 U/L (14-36); BUN/CREATININE RATIO 13 RATIO (6-26); CALCIUM 9.9 MG/DL (8.4-10.2); CHLORIDE 99 MEQ/L (98-107); CO2 - CARBON DIOXIDE 26 MEQ/L (22-30); CREATININE 1.4 MG/DL (0.7-1.2); GLOMERULAR FILTRATION RATE 36; GLUCOSE 114 MG/DL (65-110); PHOSPHORUS 3.9 MG/DL (2.5-4.5); POTASSIUM 4.9 MEQ/L (3.6-5); SODIUM 136 MEQ/L (134-144); TOTAL PROTEIN 6.9 G/DL (6.3-8.2)
--- NOTE | 2017-02-13 17:12 | DI ---
Indication: ITS.REASON: R06.00 SOB; R79.1 HIGH D-DIMER PROCEDURE: US VENOUS DUPLEX, LOWER EXT LT: Encounter: Initial Comparison: None Technique: Color Doppler duplex and grayscale sonographic imaging of the left lower extremity was performed. Findings: There is no evidence for acute deep venous thrombosis in the left thigh. Specifically, serial graded compression was performed from the inguinal ligament to the popliteal bifurcation, on the left thigh, demonstrating appropriate compressibility of the deep venous system. In addition, color and pulsed Doppler demonstrate appropriate spontaneous flow, variation with respiration, and augmentation with calf compression. At the ankle, normal flow is identified in the posterior tibial veins; these vessels are also normal in caliber. Impression: No evidence of acute DVT in the left lower limb. .
--- NOTE | 2017-02-13 18:13 | DI ---
Indication: ITS.REASON: R06.00 SOB; R79.1 HIGH D-DIMER PROCEDURE: CTA PULMONARY EMBOLI: Encounter: Initial Comparison: None Technique: Axial CT pulmonary angiographic phase images were performed through the chest after the administration of intravenous contrast. Coronal and Sagittal MIP reconstructed images were created and reviewed. Automated Exposure Control and Iterative Reconstruction dose reducing techniques were utilized. Contrast: Omnipaque 350 60 mL Findings: Pulmonary arteries: Exam is diagnostic to the subsegmental pulmonary arterial level. No filling defects identified to suggest a pulmonary embolus. Other findings: There is subpleural thickening in the right apex and upper lobe. No consolidative pneumonia. There is a small right pleural effusion. No pneumothorax. No pulmonary masses. The central airways are patent. No axillary or mediastinal adenopathy. Heart size is mildly enlarged. No pericardial effusion. Cardiac pacemaker. The upper abdomen shows no acute findings. Impression: 1. No pulmonary embolus. 2. Small right pleural effusion without evidence of acute pneumonia or overt congestive failure. .
== END ==
LOC: IMA 15:50
PROVIDERS: ATTEND Family Medicine
DX: J90 Pleural effusion, not elsewhere classified (principal); R06.00 Dyspnea, unspecified; R79.1 Abnormal coagulation profile
CPT/HCPCS: 36415; 71275; 80053; 84100; 84484; 85025; 85379; 93971; J7050; Q9967

== ENCOUNTER → 2017-03-27 | Outpatient (CLI) | payer MEDICARE, BC ==
[~2017-03-27] MED LIST changes: -IOHEXOL 350 MG/ML 75ml INJECTION ONE; -NORMAL SALINE 100 ML ONE; -SALINE FLUSH 10ml SYRINGE ONE
== END ==
LOC: WC.BC 09:54
PROVIDERS: ATTEND Physician Assistant
DX: N64.59 Other signs and symptoms in breast (principal); N64.89 Other specified disorders of breast
CPT/HCPCS: G0206; G0279